=== PATIENT | male | born 1960 | race Hispanic/Latino ===

== ENCOUNTER 2016-12-28 06:05 | Inpatient (IN) | payer OTHER ==
--- NOTE | 2016-12-28 06:40 | ED PDOC ---
Lower Extremity Pain/Injury Time Seen by Provider: 12/28/16 06:22 Chief Complaint (Nursing): Lower Extremity Problem/Injury Chief Complaint (Provider): Lower Extremity Injury History Per: Patient History/Exam Limitations: no limitations Onset/Duration Of Symptoms: Hrs (since last night) Current Symptoms Are (Timing): Still Present Additional Complaint(s): 57 year old male presents to ED with complaints of right knee pain since last night and has a past medical history of HIV (compliant with medication). Patient states he was mopping the floor when he slipped and felt a tear in the lateral aspect of his knee. (+) difficulty lifting leg and unable to bear weight. PCP: None - Knee Description Of Injury: Twisted (Slipped) Currently Unable To: Bear Weight, Bend Or Move (without assistance it is difficult) Past Medical History Reviewed: Historical Data, Nursing Documentation, Vital Signs Vital Signs: Last Vital Signs Temp 97.8 F 12/28/16 06:20 Pulse 103 H 12/28/16 06:20 Resp 18 12/28/16 06:20 BP 149/92 H 12/28/16 06:20 Pulse Ox 97 12/28/16 06:20 - Medical History PMH: Anemia (polychromasia) - Surgical History Surgical History: No Surg Hx - Family History Family History: States: No Known Family Hx - Social History Current smoker - smoking cessation education provided: No Ex-Smoker (has not smoked in the last 12 months): No Alcohol: None Drugs: Denies - Home Medications Home Medications: Ambulatory Orders Medication Instructions Recorded Ferrous Sulfate [Feosol] 650 mg PO DAILY 12/28/16 Glimepiride [Amaryl] 1 mg PO HS 12/28/16 Glimepiride [amaRYL] 2 mg PO QAM 12/28/16 - Allergies Allergies/Adverse Reactions: Allergies Allergy/AdvReac Type Severity Reaction Status Date / Time No Known Allergies Allergy Verified 12/28/16 06:23 Wells Criteria for PE - Wells Criteria for Pulmonary Embolism Clinical Signs and Symptoms of DVT: No P.E is #1 Diagnosis, or Equally Likely: No Heart Rate >100: Yes Immobilization at least 3 days;Surgery previous 4 weeks: No Previous, objectively diagnosed PE or DVT: No Hemoptysis: No Malignancy w/treatment within 6 months, or palliative: No Total Score: 1.5 Review of Systems ROS Statement: Except As Marked, All Systems Reviewed And Found Negative Musculoskeletal: Positive for: Other ((+) right knee pain. Limited ROM. Unable to bear weight) Physical Exam - Reviewed Nursing Documentation Reviewed: Yes Vital Signs Reviewed: Yes - Physical Exam Appears: Positive for: Non-toxic, No Acute Distress Skin: Positive for: Normal Color, Warm, Dry Eye Exam: Positive for: Normal appearance ENT: Positive for: Pharynx Is Neck: Positive for: Normal, Painless ROM, Supple Cardiovascular/Chest: Positive for: Regular Rate, Rhythm. Negative for: Murmur Respiratory: Positive for: Wheezing. Negative for: Normal Breath Sounds, Respiratory Distress Gastrointestinal/Abdominal: Positive for: Soft. Negative for: Tenderness Extremity: Positive for: Tenderness (tenderness to lateral aspect of knee), Swelling (swelling to right knee). Negative for: Normal ROM, Deformity Neurologic/Psych: Positive for: Alert, Oriented. Negative for: Motor/Sensory Deficits (neurovascularly intact) - ECG O2 Sat by Pulse Oximetry: 97 (RA) Pulse Ox Interpretation: Normal Medical Decision Making Medical Decision Makin Initial impression: possible meniscus injury Initial plan: * T&S * EKG * Labs * UDrug screen * PTT/PT * CXR * XR KNEE RT 0700 Patient will be signed out to Dr. Jeong pending ED work up. Scribe Attestation: Documented by Viktoriya Castro acting as a scribe for Kelvin Junior MD. Scribe Attestation: All medical record entries made by the Scribe were at my direction and personally dictated by me. I have reviewed the chart and agree that the record accurately reflects my personal performance of the history, physical exam, medical decision making, and the department course for this patient. I have also personally directed, reviewed, and agree with the discharge instructions and disposition. Disposition - Disposition Disposition: Transfer of Care Disposition Time: 07:00 Condition: FAIR Patient Signed Over To: Nora Jeong Handoff Comments: pending ED work up - POA Present On Arrival: None
[2016-12-28 07:13] LABS: BASO # 0.1 K/uL (0.0-0.2); BASO % 0.9 % (0.0-2.0); EOS # 0.4 K/uL (0.0-0.7); EOS % 4.4 % (0.0-4.0); LYMPH % 30.6 % (20.0-40.0); MEAN CORPUSCULAR HEMOGLOBIN 21.4 pg (27.0-31.0); MEAN CORPUSCULAR HGB CONC 31.4 g/dL (33.0-37.0); MEAN PLATELET VOLUME 7.6 fl (7.2-11.7); NEUT # 5.2 K/uL (1.8-7.0); NEUT % 54.1 % (50.0-75.0); NRBC % 0.2 % (0.0-0.0); RED CELL DISTRIBUTION WIDTH 16.1 % (11.5-14.5); WHITE BLOOD COUNT 9.7 K/uL (4.8-10.8)
[2016-12-28 07:19] LABS: BLOOD UREA NITROGEN 18 mg/dl (9-20); CALCIUM 9.1 mg/dL (8.4-10.2); CARBON DIOXIDE 27 mmol/L (22-30); CHLORIDE 102 mmol/L (98-107); GFR AFRICAN-AMERICAN > 60; GLUCOSE,RANDOM 168 mg/dL (75-110); POTASSIUM 3.9 MMOL/L (3.6-5.0); SODIUM 142 mmol/l (132-148)
[2016-12-28 07:31] LABS: PARTIAL THROMBOPLASTIN TIME 37.8 Seconds (25.6-37.1)
--- NOTE | 2016-12-28 08:17 | CP.PCM.HP ---
History of Present Illness - History of Present Illness History of Present Illness: 57M complains of severe right knee pain after fall yesterday at home. He says he felt tear on the outside of his knee, and he is unable to walk without pain. He has had knee pain in the past, but now it is much worse. Present on Admission - Present on Admission Any Indicators Present on Admission: No Review of Systems - Review of Systems All systems: reviewed and no additional remarkable complaints except - Musculoskeletal Musculoskeletal: As Per HPI Past Patient History - Past Social History Alcohol: None Drugs: Denies - ENDOCRINE/METABOLIC Hx Diabetes Mellitus Type 2: Yes - HEMATOLOGICAL/ONCOLOGICAL Hx Anemia: Yes (polychromasia) - PSYCHIATRIC Hx Substance Use: No - SURGICAL HISTORY Hx Surgeries: No - ANESTHESIA Hx Anesthesia: No Meds Allergies/Adverse Reactions: Allergies Allergy/AdvReac Type Severity Reaction Status Date / Time No Known Allergies Allergy Verified 12/28/16 06:23 Physical Exam - Constitutional Appears: In Acute Distress - Expanded Lower Extremities Exam Right Knee exam: effusion (moderate, no erythema, TTP lateral joint line and medial joint line, no laxity to varus/valgus/linda, +mcmurrays pain and crepitus laterally, sensation intact, +ROM but painful and assists self past 30 degrees ) Ankle exam: FULL ROM, NORMAL INSPECTION Foot/Toe exam: full ROM, normal inspection Neuro vacular tendon exam: no vascular compromise Gait: not tested/not observed - Neurological Exam Neurological exam: Alert, Oriented x3 - Psychiatric Exam Psychiatric exam: Normal Affect, Normal Mood - Skin Skin Exam: Dry, Intact, Normal Color, Warm Results - Vital Signs Recent Vital Signs: Last Vital Signs Temp 97.8 F 12/28/16 06:20 Pulse 103 H 12/28/16 06:20 Resp 18 12/28/16 06:20 BP 149/92 H 12/28/16 06:20 Pulse Ox 97 12/28/16 06:43 - Labs Result Diagrams: 12/28/16 07:00 12/28/16 07:00 Labs: Laboratory Results - last 24 hr 12/28/16 12/28/16 12/28/16 07:00 07:00 07:00 WBC 9.7 RBC 6.17 H Hgb 13.2 Hct 42.0 MCV 68.0 L MCH 21.4 L MCHC 31.4 L RDW 16.1 H Plt Count 252 MPV 7.6 Neut % (Auto) 54.1 Lymph % (Auto) 30.6 [place] % (Auto) 10.0 Eos % (Auto) 4.4 H Baso % (Auto) 0.9 Neut # 5.2 Lymph # 3.0 [place] # 1.0 H Eos # 0.4 Baso # 0.1 PT 12.2 INR 1.1 APTT 37.8 H Sodium 142 Potassium 3.9 Chloride 102 Carbon Dioxide 27 Anion Gap 17 BUN 18 Creatinine 1.0 Est GFR ( Amer) > 60 Est GFR (Non-Af Amer) > 60 Random Glucose 168 H Calcium 9.1 BBK History Checked 12/28/16 07:00 WBC RBC Hgb Hct MCV MCH MCHC RDW Plt Count MPV Neut % (Auto) Lymph % (Auto) [place] % (Auto) Eos % (Auto) Baso % (Auto) Neut # Lymph # [place] # Eos # Baso # PT INR APTT Sodium Potassium Chloride Carbon Dioxide Anion Gap BUN Creatinine Est GFR ( Amer) Est GFR (Non-Af Amer) Random Glucose Calcium BBK History Checked No verified bt Assessment & Plan (1) Knee injury Assessment and Plan: 56M with right knee injury, tearing sensation, intractable pain inability to ambulate -case d/w Dr. Galeano, for right knee arthroscopy today -NPO -labs reviewed -for OR Status: Acute Radiology Interpretation - Radiology Interpretation #2 Interpretation: Patient Name / ID : JENNY BROWN / [id number] Exam Date : 12/28/2016 06:47:52 ( Approved ) Study Comment : Sex / Age : M / 56Y Creator : Marley Chen Dictator : Marley Chen Senior Care Assistant : Carbon Paper Machine Operator : Marley Chen Approver2 : Report Date : 12/28/2016 08:19:56 My Comment : PROCEDURE: Right Knee Radiographs.*/ HISTORY: knee pain COMPARISON: None FINDINGS: BONES: No fracture. Intercondylar and central tibial plateau subchondral cystic changes suggested. Tibial spine and posterior patellar spurring noted JOINTS: Mild moderate osteoarthrosis. Medial femoral tibial joint space narrowing inferred -on these nonweightbearing views. JOINT EFFUSION: Doubted OTHER FINDINGS: 7 mm rimmed calcification posterior distal femoral metaphyseal extraosseous soft tissues - possible loose body no more proximal vascular calcifications appreciated cortical hyperostoses posterior tibia -consistent with tug effects. Lateral patellar tilt and trace lateral patellar orientation. IMPRESSION: No fracture or lytic lesion. Mild-moderate osteoarthrosis - Radiology Interpretation #3 Interpretation: Patient Name / ID : JENNY BROWN / [id number] Exam Date : 12/28/2016 06:45:02 ( Approved ) Study Comment : Sex / Age : M / 56Y Creator : Marley Chen Dictator : Marley Chen Senior Care Assistant : Carbon Paper Machine Operator : Marley Chen Approver2 : Report Date : 12/28/2016 08:20:28 My Comment : HISTORY: chest pain COMPARISON: No prior. FINDINGS: LUNGS: No active pulmonary disease. PLEURA: No significant pleural effusion identified, no pneumothorax apparent. CARDIOVASCULAR: Normal. OSSEOUS STRUCTURES: Diffuse thoracic spondylosis VISUALIZED UPPER ABDOMEN: Normal. OTHER FINDINGS: None. IMPRESSION: No active disease.
--- NOTE | 2016-12-28 08:21 | RAD ---
PROCEDURE: Right Knee Radiographs.*/ HISTORY: knee pain COMPARISON: None FINDINGS: BONES: No fracture. Intercondylar and central tibial plateau subchondral cystic changes suggested. Tibial spine and posterior patellar spurring noted JOINTS: Mild moderate osteoarthrosis. Medial femoral tibial joint space narrowing inferred -on these nonweightbearing views. JOINT EFFUSION: Doubted OTHER FINDINGS: 7 mm rimmed calcification posterior distal femoral metaphyseal extraosseous soft tissues - possible loose body no more proximal vascular calcifications appreciated cortical hyperostoses posterior tibia -consistent with tug effects. Lateral patellar tilt and trace lateral patellar orientation. IMPRESSION: No fracture or lytic lesion. Mild-moderate osteoarthrosis
--- NOTE | 2016-12-28 08:22 | RAD ---
HISTORY: chest pain COMPARISON: No prior. FINDINGS: LUNGS: No active pulmonary disease. PLEURA: No significant pleural effusion identified, no pneumothorax apparent. CARDIOVASCULAR: Normal. OSSEOUS STRUCTURES: Diffuse thoracic spondylosis VISUALIZED UPPER ABDOMEN: Normal. OTHER FINDINGS: None. IMPRESSION: No active disease.
--- NOTE | 2016-12-28 08:58 | ED PDOC ---
- Laboratory Results Result Diagrams: 12/28/16 07:00 12/28/16 07:00 - ECG O2 Sat by Pulse Oximetry: 97 (RA) Medical Decision Making Medical Decision Making: received patient from Dr. Junior. Pending preop labs, etc. Case d/w Dr. Galeano. Okay to admit to his service. BOB Benjamin to see patient. Disposition Doctor Will See Patient In The: Hospital - Clinical Impression Clinical Impression: Knee injury - POA Present On Arrival: Falls Or Trauma - Disposition Disposition: Admitted as In-Patient Disposition Time: 08:56 Condition: FAIR Forms: [employer] (Italian)
[2016-12-28] MEDS ORDERED: Lidocaine 1% Inj (20ml) ONE (09:51)
[2016-12-28] MEDS ORDERED: Absorbable Gelatin Sponge Size 100 ONE (09:51)
[2016-12-28] MEDS ORDERED: ceFAZolin IV 1 gm in Dextrose 2 GM/100 ML BAG IVPB ONE (09:51)
[2016-12-28] MEDS ORDERED: Succinylcholine 200 mg/10 ml Inj IV ONE (10:01)
[2016-12-28] MEDS ORDERED: Propofol 10 mg/ml Inj (20 ML) ONE ×2 (10:01→12:01)
[2016-12-28] MEDS ORDERED: Midazolam 2 MG/2 ML VIAL ONE (10:32)
[2016-12-28] MEDS ORDERED: Neostigmine Methylsulfate 3mg/3ml Syringe IV ONE (11:29)
[2016-12-28] MEDS ORDERED: Lactated Ringer's 1,000 ML IV ONE ×2 (11:35→12:00)
--- NOTE | 2016-12-28 11:45 | CARD ---
APPROVED REPORT EKG Measurement Heart [id number] CT 140P40 [id number] <Conclusion> Normal sinus rhythm normal ECG
[2016-12-28] MEDS: Bupivacaine 0.5% Inj(30mL) ONE ×2 (12:33→13:00)
[2016-12-28] MEDS: Morphine 1 mg/ml preservative-free Inj(Duramorph) ONE ×2 (12:34→13:00)
[2016-12-28] MEDS: MethylPREDNISolone Depo 40 mg/ml Inj ONE ×2 (12:34→13:00)
[2016-12-28] MEDS: Bacitracin Ointment 30 GM TUBE ONE ×2 (12:35→13:05)
--- NOTE | 2016-12-28 12:54 | CP.PCM.PN ---
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 Patient counseled on the risks of addiction, physical or psychological dependence, and overdose associated with opioid drugs and the danger of taking opioid drugs with alcohol and other central nervous system depressants, and cautioned patient on storage and disposal. Objective - Vital Signs/Intake and Output Vital Signs (last 24 hours): Temp Pulse Resp BP Pulse Ox 97.8 F 103 H 18 149/92 H 97 12/28/16 06:20 12/28/16 06:20 12/28/16 06:20 12/28/16 06:20 12/28/16 08:57 Intake and Output: 12/28/16 12/28/16 06:59 18:59 Intake Total 1000 Balance 1000 - Labs Labs: 12/28/16 07:00 12/28/16 07:00 PT 12.2 Seconds (9.8-13.1) 12/28/16 07:00 INR 1.1 (0.9-1.2) 12/28/16 07:00 APTT 37.8 Seconds (25.6-37.1) H 12/28/16 07:00 Assessment and Plan (1) Knee injury Status: Acute
[2016-12-28] MEDS ORDERED: Oxycodone/Acetaminophen 5/325 mg Tab PO PRN (13:42)
[2016-12-28 15:21] VITALS: BP 135/89; PULSE 87; RESP 20; TEMP 97.6; O2SAT 95
--- NOTE | 2016-12-28 20:50 | PCM.SURG1 ---
Surgeon's Initial Post Op Note - Surgeon's Notes Surgeon: Froylan Director Of Maintenance: JULIANO Pratt Type of Anesthesia: General Endo Anesthesia Administered By: DR Matias Pre-Operative Diagnosis: internal derangemnt R knee Operative Findings: chodral damage (arthritis-femoral trochlea/'medial femoral condyle). tear medial /tear lateral meniscus. tricompartmental synovitis Post-Operative Diagnosis: as above Operation Performed: arthroscopic chodroplasty/medial femoral condyle/femoral trochlea. surg arthroscopy partial tricompartmental synovectomy. surg arthroscopy partial medial/lateral meniscectomy. intraarticular injection Specimen/Specimens Removed: cartilage/synovium Estimated Blood Loss: EBL {In ML}: 10 Blood Products Given: N/A Drains Used: No Drains Post-Op Condition: Good Date of Surgery/Procedure: 12/28/16 Time of Surgery/Procedure: 12:15 (time in room 11:35)
--- NOTE | 2016-12-30 11:26 | OP ---
PROCEDURE DATE: 12/28/2016 PREOPERATIVE DIAGNOSIS: Internal derangement of the right knee. POSTOPERATIVE DIAGNOSES: 1. Complex tear, medial meniscus. 2. Tear, lateral meniscus. 3. Chondral damage arthritic change femoral trochlea, medial femoral condyle. 4. Tricompartmental synovitis. PROCEDURE: 1. Surgical arthroscopy and chondroplasty medial femoral condyle, femoral trochlea. 2. Surgical arthroscopy. 3. Partial medial meniscectomy. 3. Partial lateral meniscectomy. 4. Surgical arthroscopy and partial tricompartmental synovectomy. 5. Intra-articular injection. SURGEON: Aditya Galeano MD CREDENTIALS SPECIALIST: Kiki Magallanes, certified registered nursing web marketing assistant. ANESTHESIA: General endotracheal anesthesia. COMPLICATIONS: None. DRAINS: None. 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 The pain is at the posteromedial aspect of the knee as well as the lateral compartment. The patient is refractory to conservative approach. MRI examination was positive. Pros, cons, risks and benefits of surgical arthroscopy were discussed. The concept that later arthroplasty surgery may be indicated, the possibility of mechanical failure, infection, thromboembolic disease, secondary or tertiary surgery was discussed. The patient can no longer withstand the discomfort. OPERATIVE PROCEDURE: After having obtained informed consent in the above fashion, after satisfactory induction of general endotracheal anesthesia, after having identified side, site and procedure and a critical pause/time-out, the patient was identified as Dr. Zeyad Dutta. In the supine position with all bony prominences well padded, the right lower extremity was prepped and free draped in the usual fashion for lower extremity surgery. The tourniquet had been applied was not yet inflated. After exsanguinating the limb using a 6-inch Esmarch bandage, the tourniquet which had been applied was inflated to 350 mmHg. The joint was insufflated with 10 mL of 1% lidocaine without epinephrine. Anterolateral portal was described one thumb breadth lateral to the inferior pole of the patella. Using #1 blade followed by spreading introduction of the blunt trocar, the arthroscope was introduced. There was found to be rather dense tricompartmental synovitis. Triangulation was accomplished using #18 gauge spinal needle, followed by #1 blade, followed by spreading. With the arthroscope anterolaterally, a careful partial tricompartmental synovectomy was accomplished using the arthroscopic shaver and the arthroscopic wand to control hemostasis. With the arthroscope anterolaterally, the surgeon exerting a general valgus stress, there was found to be a complex tear of the deep horn of the medial meniscus. With the arthroscope anterolaterally with the surgeon exerting a general valgus stress, using a combination of the upbiting basket forceps and the arthroscopic shaver, a partial medial meniscectomy was accomplished. There was a deep posterior horn cleavage tear extending into the capsule. The arthroscope was transferred anteromedially and the arthroscopic shaver was placed anterolaterally; partial medial meniscectomy was completed. The inner free edge was smoothed using the ArthroCare wand. Please refer to the video photographs. With the arthroscope anterolaterally with the knee in [id number] position, there was a tear of the inner free edge of the lateral meniscus. Using a combination of the straight biting basket forceps and the side biting basket forceps, a partial lateral meniscectomy was accomplished. Using a combination of straight biting basket forceps, the side biting basket forceps, the inner free edge was smoothed using the Caro Nut surface wand. There was found to be evidence of chondral damage in the femoral trochlea and medial femoral condyle. An abrasion chondroplasty was accomplished using mechanical shaver and the arthroscopic wand. An abrasion chondroplasty having been accomplished at the femoral trochlea and at the medial femoral condyle, a careful partial tricompartmental synovectomy was completed. Bleeding points were controlled with the arthroscopic wand. Partial synovectomy was completed. The wound was thoroughly irrigated. Closure was in layers with interrupted Vicryl and nylon. Again, the possibility of arthroplasty in the future was discussed. 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 A Erasmo Elizalde compression dressing was applied. Aditya Galeano MD
== END 2016-12-28 16:34 | disposition home or self-care (01) | DRG 489 ==
LOC: EDBD 06:05 → H.ER 06:05 → H.ERHOLD 08:55
PROVIDERS: ADMIT Orthopaedic Surgery; ATTEND Orthopaedic Surgery
PROC: 0SUC09C Supplement Right Knee Joint with Liner, Patellar Surface, Open Approach (ICD-10-PCS; 2016-12-28)
PROC: 0SBC4ZZ Excision of Right Knee Joint, Percutaneous Endoscopic Approach (ICD-10-PCS; 2016-12-28)
PROC: 0SBC4ZZ Excision of Right Knee Joint, Percutaneous Endoscopic Approach (ICD-10-PCS; principal; 2016-12-28 12:15)
DX: S83.239A Complex tear of medial meniscus, current injury, unspecified knee, initial encounter (principal); E66.01 Morbid (severe) obesity due to excess calories; W19.XXXA Unspecified fall, initial encounter; E11.9 Type 2 diabetes mellitus without complications; Z21 Asymptomatic human immunodeficiency virus [HIV] infection status; M17.11 Unilateral primary osteoarthritis, right knee; M65.861 Other synovitis and tenosynovitis, right lower leg